=== PATIENT | female | born 1955 | race Caucasian/White ===

== ENCOUNTER 2023-01-14 18:47 | Emergency (ER) | payer MEDICARE ==
[2023-01-14 20:21] VITALS: BP 146/79; PULSE 62
== END 2023-01-14 21:02 | disposition home or self-care (01) ==
LOC: JP.ED 18:47
DX: M17.11 Unilateral primary osteoarthritis, right knee (principal); E78.00 Pure hypercholesterolemia, unspecified; K21.9 Gastro-esophageal reflux disease without esophagitis; E03.9 Hypothyroidism, unspecified; Z79.82 Long term (current) use of aspirin; Z79.899 Other long term (current) drug therapy
CPT/HCPCS: 73564-26-RT; 73564-RT; 73565; 73565-26; 99283-25